=== PATIENT | female | born 1985 | race Caucasian/White ===

== ENCOUNTER → 2023-03-16 10:45 | Outpatient (BNVA) | payer OTHER, SELFPAY | PROVIDERS: Visit Provider Obstetrics & Gynecology | DX: N95.1 Menopausal and female climacteric states (principal) | CPT/HCPCS: 83001; 85025 ==

== ENCOUNTER 2025-10-03 19:06 | Emergency (ER) | payer SELFPAY ==
[2025-10-03 19:31] VITALS: BP 171/108; PULSE 105; RESP 18; TEMP 37.1; O2SAT 98; BMI 39.1
--- NOTE | 2025-10-03 20:10 | ED_ITS ---
HPI - Extremity Problem General: Chief complaint: Extremity Problem,Nontraumatic Stated complaint: Knot on R leg Time Seen by Provider: 10/03/25 19:41 History of Present Illness: Patient is 40-year-old female without medical history except for alpha gal, comes to the ED with right lower extremity edema. Context: Patient went to [place] to visit her sister, grandchildren, daughter, and was stuck in the traffic when there was bad weather flurries, ending up with a 10-1/2-hour drive back. She had some increasing edema in her right lower extremity. Patient stated this is improved with elevation today. She did have some shortness of breath last p.m. doing laundry. This is not usual for patient. No fevers [place]: Patient had a question of past medical history of coagulopathy. Patient states that she had some shortness of breath, and lower extremity edema, at which time [facility] did a CTA of her chest, and told her she had pulmonary embolism, however then came back out to her and told her they need to repeat the test, and told her she did not have pulmonary embolism. She has never been treated for pulmonary embolism. Associated symptoms: Deny chest pain, fever(s) or rash (around nose and cheeks, around cpap mask) Related Data Previous Rx's ?Medication ?Instructions ?Recorded norethindrone 1.5 mg-ethinyl 1 tab PO DAILY #84 tabs 0 03/16/23 estradiol 30 mcg(21)/iron 75 mg(7) tablet ( FE 1.03/27 (28)) mupirocin 2 % topical ointment 1 applic topical TID ce llulitis 07/13/23 #15 grams sulfamethoxazole 800 1 tab PO BID 10 days #20 tab s 07/13/23 mg-trimethoprim 160 mg tablet spironolactone 25 mg tablet 25 mg PO QAM PRN edema #30 tabs 10/03/25 Allergies Allergy/AdvReac Type Severity Reaction Status Date / Time latex Allergy Intermediate ALGY-Rash Verified 07/13/23 17:16 Alpha-Gal Allergy ALGY-Anaphy Verified 10/03/25 19:39 ([id number]-4,3-Gala laxis Review of Systems Const: Denies: fever(s), change in appetite, fatigue or other (difficulty sleeping) Eyes: Denies: change in vision, blurry vision, eye discharge, eye redness or other (itchy eyes) ENMT: Denies: throat pain, ear or mastoid pain, nasal discharge or nasal congestion Card: Denies: chest pain, palpitations, lightheadedness or syncope Resp: Denies: dyspnea, productive cough, non-productive cough or other (increased work of breathing while doing laundry) GI: Denies: abdominal pain, nausea, vomiting, diarrhea, constipation or hematochezia Skin/Breast: Denies: rash (around nose and cheeks, around cpap mask), pruritus, skin tenderness, skin swelling, sores, new lesions or non-healing lesions Neuro: Denies: headache(s), lack of coordination or other (altered mental status) Psych: Denies: anxiety or depression PFSH ED PFSH: Family History Sister Cancer Breast Hypertension Chronic kidney disease (CKD) Mother Lung disease Hypertension Denies family history of Diabetes CAD (coronary artery disease) Psychiatric illness Stroke Female Reproductive History: Spontaneous abortions: No Physical Exam Const: COMMON NORMALS: no acute distress, average body habitus, patient oriented x3, no limitations, healthy appearing, alert and well nourished EXAM LIMITATIONS: no altered mental status GENERAL APPEARANCE: cooperative, comfortable, well kempt and well developed; not in distress and not ill appearing ORIENTATION/CONSCIOUSNESS: Yes awake, Yes oriented to person, Yes oriented to place and Yes oriented to time; not confused HENMT: COMMON NORMALS: normocephalic, atraumatic, hearing grossly normal bilaterally, external ears normal and Normal external nose present HEAD & SCALP: normal to inspection, normocephalic and atraumatic FACE & SINUS: normal facial exam and face symmetric NOSE: Normal external nose present and Normal nares present GENERAL EAR: hearing not grossly impaired EXTERNAL EAR: Yes external ears normal Eye: COMMON NORMALS: Equal, round and reactive pupils present, EOMs intact bilaterally and conjunctivae normal GENERAL EYE: appearance normal, both eyes and all related structures ALIGNMENT: Yes alignment normal PERIORBITAL: periorbital findings normal EYELID: eyelids normal CONJUNCTIVA: Yes conjunctivae normal PUPIL: Yes Equal, round and reactive pupils present EOM: No EOM abnormal Neck/C-Spine: COMMON NORMALS: full ROM and supple GENERAL: Yes normal visual inspection and No anterior neck swelling CERVICAL SPINE: Yes cervical ROM normal Resp: COMMON NORMALS: normal respiratory effort EFFORT & INSPECTION: Yes able to speak in complete sentences, Yes symmetric chest movement, No abnormal respiratory pattern, No respiratory distress, No decreased respiratory effort, No labored and No Actively coughing Cardio: COMMON NORMALS: regular rate and regular rhythm RATE: regular rate RHYTHM: regular rhythm GI: COMMON NORMALS: Normal to inspection, nondistended, normoactive bowel sounds present, Soft to palpation, non-tender and No hepatosplenomegaly present PALPATION: Yes Soft to palpation and Yes No hepatosplenomegaly present : COMMON NORMALS: Yes no CVA tenderness BLADDER/KIDNEY EXAM: Yes no CVA tenderness Back/Pelvis: COMMON NORMALS: no CVA tenderness Extremity: COMMON NORMALS: normal to inspection, full ROM and no joint enlargement NARRATIVE EXTREMITY EXAM: +1 pedal edema on the right. GENERAL: Yes normal exam except as noted Neuro: COMMON NORMALS: patient oriented x3, moves all extremities and no focal motor deficits SENSORIUM/ORIENTATION: Yes alert, Yes oriented to person, Yes oriented to place, Yes oriented to time and No Orientation impaired SPEECH: speech normal GAIT: Yes Normal gait present MOTOR EXAM: 5/5 motor strength present throughout Psych: COMMON NORMALS: mental status grossly normal, Normal thought process present, cooperative, normal affect, speech normal and activity/motor behavior normal APPEARANCE: Yes grossly normal and Yes well kempt ATTITUDE: Yes calm ACTIVITY/MOTOR BEHAVIOR: Yes appropriate eye contact SPEECH: Yes normal speech THOUGHT PROCESS: Normal thought process present THOUGHT CONTENT: Yes Normal thought content present ATTENTION/CONCENTRATION: Yes attention grossly intact INSIGHT: Good insight present (Psych) JUDGEMENT: Good judgement present (Psych) Skin: COMMON NORMALS: turgor normal GENERAL SKIN EXAM: elasticity normal and turgor normal RASHES: no rashes TRAUMA: no lacerations or abrasions WOUNDS: No wounds noted Course Vital Signs: Vital signs: Vital Signs Temperature 98.7 F 10/03/25 19:31 Pulse Rate 105 H 10/03/25 19:31 Respiratory Rate 18 10/03/25 19:31 Blood Pressure 171/108 10/03/25 19:31 Pulse Oximetry 98 10/03/25 19:31 Oxygen Delivery Me thod Room Air 10/03/25 19:31 MDM - Extremity (Nontraumatic) Medical Decision Making Patient is 40-year-old female that presents to the ED due to concern of DVT. D- dimer is negative, which has great efficacy if it is in normal range at 0.35. I discussed with patient no need for ultrasound to lower extremity or CTA. I suspect she had extra fluid overload with driving from [place]. The weather was also bad, and it took her extra long time. Patient states understanding. She will follow-up with her primary care. She believes this is secondary to occasional outbreaks of alpha gal where she does not follow her antimammal diet completely, however the best she can. Medical Records I reviewed the patient's medical records. Lab Data I reviewed the patient's lab results. Laboratory Results D-Dimer 0.35 ug/mLFEU (0-0.59) 10/03/25 20:23 No radiology studies performed this visit Discharge Plan Discharge Patient Disposition: Home Clinical Impression: Edema of right lower extremity Condition: Stable Prescriptions: New spironolactone 25 mg tablet 25 mg PO QAM PRN (Reason: edema) Qty: 30 0RF Rx Instructions: Edema to lower extremities or weight gain of 2 pounds. No Action mupirocin 2 % ointment 1 applic topical TID Qty: 15 1RF Rx Instructions: apply and cover with warm moist compress for 15 minutes, 3 times daily sulfamethoxazole-trimethoprim 800-160 mg tablet 1 tab PO BID 10 Days Qty: 20 0RF norethindrone-e.estradiol-iron [ 1.5/30 (28)] 1.5 mg-30 mcg (21)/75 mg (7) tablet 1 tab PO DAILY Qty: 84 12RF Discharge Orders: Discharge ED (Routine); Ordered 10/03/25 Ordered By: Farida Fernandez Discharge Diet: As Directed Discharge Activity: Resume usual activity Patient Instructions: Edema (ED), Patient Portal & Edna Instructions Activity Restrictions/Additional Instructions: - Edema to your lower extremity is most likely related to your alpha gal and dependency with your driving. I did send over spironolactone to the pharmacy that is alpha-gal safe. - As well, I would recommend compressing this lower extremity. There are compression stockings everywhere, however the ones I like that are most compliant, are called crucial, and I got them on [employer]. They do recommend no longer 1, however it is almost impossible to wear those above your knee. You might try the crucial because it would be better with compliance - Good luck to you. I am sorry about your alpha gal. Thank you for choosing [facility] for your healthcare needs today. You have been screened and evaluated and felt safe for discharge. Health conditions do change or evolve sometimes and as such it is important that you follow up wit h your Primary Doctor to be re checked, 3-5 days is a general good time frame for follow up. 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
== END 2025-10-03 21:43 | disposition home or self-care (01) ==
PROVIDERS: Emergency Provider Physician Assistant
DX: R60.0 Localized edema (principal)
CPT/HCPCS: 36415; 85378; 99283